=== PATIENT | female | born 1935 | race Caucasian/White ===

== ENCOUNTER → 2022-10-17 10:55 | Outpatient (BNVA) | payer MEDICARE, OTHER, SELFPAY | PROVIDERS: Family Provider Family Medicine; PCP Family Medicine; Visit Provider Internal Medicine Cardiovascular Disease | DX: I10 Essential (primary) hypertension (principal); I48.11 Longstanding persistent atrial fibrillation; Z79.899 Other long term (current) drug therapy; I65.29 Occlusion and stenosis of unspecified carotid artery; Z86.73 Personal history of transient ischemic attack (TIA), and cerebral infarction without residual deficits | CPT/HCPCS: 99214 ==

== ENCOUNTER 2022-11-19 12:07 | Outpatient (CLI) | payer MEDICARE, OTHER, SELFPAY ==
--- NOTE | 2022-11-19 13:00 | USCV_ITS ---
Elizabeth Winter Age: 87 Gender: F : 1935 Exam Date: 11/19/2022 12:30 Ordering Phys: Bert Barcenas MD ([email or web address]) Technologist: MARYCARMEN Exam Location: [facility] [place] Indication: RIGHT CAROTID STENT Risk Factors: Previous Vascular Surgery: Right Brachial BP: / Left Brachial BP: / Right Left Velocity (cm/s) Spectral Plaque Velocity (cm/s) Spectral Plaque Syst/Diast Broadening Syst/Diast Broadening 50.50/ 13.20 Prox CCA 68.40 / 15.80 64.50/ 14.00 Mid CCA 70.30 / 16.40 69.90/ 12.40 Distal CCA 67.00 / 13.10 48.60/ 12.50 Prox ICA 122.80/ 25.00 48.00/ 15.80 Mid ICA 108.00/ 13.60 61.10/ 15.80 Distal ICA 98.10 / 23.20 141.10 ECA 170.10 0.87 ICA/CCA 1.75 Antegrade Vertebral Antegrade 70.30/ 11.20 cm/s 136.5/ 23.90 cm/s 0 Tri Subclavian Tri 148.6 128.5 0 0 FINDINGS Comparison: none available. Diffuse bilateral scattered calcified plaque and intimal thickening throughout the common carotid arteries and extending through the bifurcation. Greatest in the left ICA. No high grade stenosis. Antegrade vertebral arteries. CONCLUSIONS Bilateral ICA stenosis less than 50%. Bilateral carotid atherosclerosis, greater on the left. Dr. Melodie Loera DO (Electronically Signed) Final Date: 19 November 2022 14:56 S
== END 2022-11-19 12:08 | disposition home or self-care (01) ==
LOC: RAD 12:07
PROVIDERS: PCP Family Medicine; Visit Provider Internal Medicine Cardiovascular Disease
DX: I77.9 Disorder of arteries and arterioles, unspecified; Z86.73 Personal history of transient ischemic attack (TIA), and cerebral infarction without residual deficits; I65.23 Occlusion and stenosis of bilateral carotid arteries
CPT/HCPCS: 93880

== ENCOUNTER → 2023-10-16 14:49 | Outpatient (BNVA) | payer MEDICARE, OTHER, SELFPAY | PROVIDERS: PCP Family Medicine; Visit Provider Internal Medicine Cardiovascular Disease | DX: I48.11 Longstanding persistent atrial fibrillation (principal); I65.21 Occlusion and stenosis of right carotid artery; Z86.73 Personal history of transient ischemic attack (TIA), and cerebral infarction without residual deficits; E78.5 Hyperlipidemia, unspecified; I10 Essential (primary) hypertension | CPT/HCPCS: 99214 ==